=== PATIENT | male | born 1980 | race Caucasian/White ===

== ENCOUNTER 2016-09-11 05:56 | Inpatient (IN) | payer OTHER ==
[~2016-09-11] VITALS: Ht 175.3 cm; Wt 97.4 kg
[2016-09-11 06:27] VITALS: BP 151/86; PULSE 82; RESP 18; TEMP 98.2; O2SAT 98
[2016-09-11] MEDS ORDERED: VENL37.5 PO (06:34)
--- NOTE | 2016-09-11 07:10 | PD ---
HPI Chief Complaint: Psychiatric Symptoms Time Seen by Provider: 07:03 Travel History International Travel<30 days: No Contact w/Intl Traveler<30days: No Traveled to known affect area: No History of Present Illness HPI 35-year-old male with history of depression, anxiety, PTSD, here voluntarily for evaluation of suicidal ideation. The patient reports feeling suicidal stating that he had thoughts of hurting himself with chemicals. He reports rounds of finances and is depressed because he is not able to see his daughter. He was on Effexor 37.5 mg, however he ran out of this medication 3 days ago. He is having a slight posterior headache. He reports history of headaches and states that this is usual for him. No fevers, chills, cough, or recent illness. No alcohol or drug abuse or use. PFSH Past Medical History Depression: Yes Past Surgical History Surgical History: No Previous Surgery Social History Alcohol Use: No Tobacco Use: No Substance Use: No Allergies-Medications (Allergen,Severity, Reaction): Coded Allergies: No Known Allergies (Unverified , 09/11/16) Reported Meds & Prescriptions Reported Meds & Active Scripts Active Reported Effexor (Venlafaxine HCl) 37.5 Mg Tab 37.5 Mg PO DAILY Review of Systems Except as stated in HPI: all other systems reviewed are Neg Physical Exam Narrative GENERAL: Pleasant, well-developed, well-nourished, comfortable, no acute distress. SKIN: Warm and dry. HEAD: Atraumatic. Normocephalic. EYES: Pupils equal and round. No scleral icterus. No injection or drainage. ENT: Mucous membranes pink and moist. NECK: Trachea midline. No JVD. No nuchal rigidity. CARDIOVASCULAR: Regular rate and rhythm. RESPIRATORY: No accessory muscle use. Clear to auscultation. Breath sounds equal bilaterally. GASTROINTESTINAL: Abdomen soft, non-tender, nondistended. MUSCULOSKELETAL: No obvious deformities. No clubbing. No cyanosis. No edema. NEUROLOGICAL: Awake and alert. No obvious cranial nerve deficits. Motor grossly within normal limits. Normal speech. PSYCHIATRIC: Appropriate mood and affect; insight and judgment normal. Data Data Last Documented VS Vital Signs Date Time Temp Pulse Resp B/P Pulse Ox O2 Delivery O2 Flow Rate FiO2 09/11/16 06:27 98.2 82 18 151/86 98 Orders Complete Blood Count With Diff (09/11/16 07:07) Comprehensive Metabolic Panel (09/11/16 07:07) Psych Screen (09/11/16 07:07) Drug Screen, Random Urine (09/11/16 07:07) Alcohol (Ethanol) (09/11/16 07:07) Acetaminophen (Tylenol) (09/11/16 07:15) Labs Laboratory Tests Test 09/11/16 09/11/16 07:15 07:50 White Blood Count 8.8 TH/MM3 Red Blood Count 5.09 MIL/MM3 Hemoglobin 14.2 GM/DL Hematocrit 42.9 % Mean Corpuscular Volume 84.2 FL Mean Corpuscular Hemoglobin 27.9 PG Mean Corpuscular Hemoglobin 33.1 % Concent Red Cell Distribution Width 13.5 % Platelet Count 188 TH/MM3 Mean Platelet Volume 9.6 FL Neutrophils (%) (Auto) 50.0 % Lymphocytes (%) (Auto) 35.8 % Monocytes (%) (Auto) 10.1 % Eosinophils (%) (Auto) 3.2 % Basophils (%) (Auto) 0.9 % Neutrophils # (Auto) 4.4 TH/MM3 Lymphocytes # (Auto) 3.1 TH/MM3 Monocytes # (Auto) 0.9 TH/MM3 Eosinophils # (Auto) 0.3 TH/MM3 Basophils # (Auto) 0.1 TH/MM3 CBC Comment DIFF FINAL Differential Comment Sodium Level 142 MEQ/L Potassium Level 3.6 MEQ/L Chloride Level 109 MEQ/L Carbon Dioxide Level 25.6 MEQ/L Anion Gap 7 MEQ/L Blood Urea Nitrogen 13 MG/DL Creatinine 1.04 MG/DL Estimat Glomerular Filtration 82 ML/MIN Rate Random Glucose 104 MG/DL Calcium Level 8.6 MG/DL Total Bilirubin 0.3 MG/DL Aspartate Amino Transf 12 U/L (AST/SGOT) Alanine Aminotransferase 15 U/L (ALT/SGPT) Alkaline Phosphatase 83 U/L Total Protein 6.9 GM/DL Albumin 3.4 GM/DL Ethyl Alcohol Level LESS THAN 3 MG/DL Urine Opiates Screen NEG Urine Barbiturates Screen NEG Urine Amphetamines Screen NEG Urine Benzodiazepines Screen NEG Urine Cocaine Screen NEG Urine Cannabinoids Screen NEG MDM Medical Decision Making Medical Screen Exam Complete: Yes Emergency Medical Condition: Yes Differential Diagnosis Depression, suicidal ideation, tension headache, cluster headache, migraine headache, SAH/meningitis/encephalitis unlikely Narrative Course Labs reviewed and are unremarkable. The patient is medically cleared for psychiatric evaluation and disposition by them. Diagnosis Primary Impression: Suicidal ideation Jose Ba MD Sep 11, 2016 07:10
[2016-09-11] MEDS ORDERED: ACETAMINOPHEN 325 MG TAB PO ONE (07:15)
[2016-09-11 07:38] LABS: AUTOMATED NEUTROPHIL # 4.4 TH/MM3 (1.8-7.7); BASOPHIL # 0.1 TH/MM3 (0-0.2); BASOPHIL % 0.9 % (0.0-2.0); EOSINOPHIL # 0.3 TH/MM3 (0-0.4); EOSINOPHIL % 3.2 % (0.0-4.0); HEMATOCRIT 42.9 % (39.0-51.0); HEMO FLAGS DIFF FINAL; LYMPH % 35.8 % (9.0-44.0); LYMPHOCYTE # 3.1 TH/MM3 (1.0-4.8); MEAN CELL VOLUME 84.2 FL (80.0-100.0); MEAN CORPUSCULAR HEMOGLOBIN 27.9 PG (27.0-34.0); MEAN CORPUSCULAR HGB CONC 33.1 % (32.0-36.0); MONO % 10.1 % (0.0-8.0); PLATELET COUNT 188 TH/MM3 (150-450); RED BLOOD COUNT 5.09 MIL/MM3 (4.50-5.90); RED CELL DISTRIBUTION WIDTH 13.5 % (11.6-17.2); WHITE BLOOD COUNT 8.8 TH/MM3 (4.0-11.0)
[2016-09-11 07:54] LABS: ALT (GPT) 15 U/L (12-78); ANION GAP 7 MEQ/L (5-15); AST (GOT) 12 U/L (15-37); BICARBONATE 25.6 MEQ/L (21.0-32.0); BLOOD UREA NITROGEN 13 MG/DL (7-18); CHLORIDE 109 MEQ/L (98-107); GLOMERULAR FILTRATION RATE 82 ML/MIN (>89); POTASSIUM 3.6 MEQ/L (3.5-5.1); SODIUM (NA) 142 MEQ/L (136-145)
[2016-09-11 07:56] LABS: ALKALINE PHOSPHATASE 83 U/L (45-117); TOTAL BILIRUBIN ADULT 0.3 MG/DL (0.2-1.0)
[2016-09-11 08:15] LABS: AMPHETAMINE, URINE NEG (NEG); BARBITURATES, URINE NEG (NEG); COCAINE, URINE NEG (NEG)
[2016-09-11 13:00] VITALS: BP 128/83; PULSE 88; RESP 16; O2SAT 100
[2016-09-11 17:06] VITALS: BP 124/76
[2016-09-11 18:03] VITALS: BP 130/70; PULSE 66; RESP 16; TEMP 97.8; O2SAT 96
[2016-09-11] MEDS ORDERED: IBUPROFEN 600 MG TAB PO ONE (18:45)
[2016-09-11 22:23] VITALS: BP 123/67; PULSE 63; RESP 18; O2SAT 98
[2016-09-12 02:22] VITALS: BP 109/72; PULSE 54; RESP 14; O2SAT 99
[2016-09-12] MEDS ORDERED: ALUMINUM/MAGNESIUM/SIMETH 30 ML CUP PO PRN (04:45)
[2016-09-12] MEDS ORDERED: hydrOXYzine HCL 50 MG TAB PO PRN (04:45)
[2016-09-12] MEDS ORDERED: ACETAMINOPHEN 325 MG TAB PO PRN (04:45)
[2016-09-12] MEDS ORDERED: MAGNESIUM HYDROXIDE SUSP 30 ML CUP PO PRN (04:45)
[2016-09-12] MEDS ORDERED: diphenhydrAMINE HCL 50 MG CAP PO PRN ×2 (04:45)
[2016-09-12] MEDS ORDERED: diphenhydrAMINE HCL 50 MG/ML VIAL IM PRN (04:45)
[2016-09-12 05:25] VITALS: BP 137/87; PULSE 67; RESP 18; TEMP 98; O2SAT 98
[2016-09-12] MEDS: REMOVE OLD PATCH T-DERMAL SCH (09:00)
[2016-09-12] MEDS: NICOTINE 21 MG/24 HR PATCH T-DERMAL SCH (09:00)
--- NOTE | 2016-09-12 15:16 | HHI.HP ---
Provisional Diagnosis Admission Date Sep 12, 2016 at 04:40 [place] I. 1. Major depressive disorder, recurrent severe without psychotic features 2. PTSD, chronic [place] II. Deferred [place] V. GAF is 30 presently Certification of Person's Competence To Provide Express and Informed Consent I have personally examined Alonzo Mahajan , a person being served at [facility] on, Sep 12, 2016 15:16. Express and informed consent means consent voluntarily given in writing, by a competent person, after sufficient explanation and disclosure of the subject matter involved to enable the person to make a knowing and willful decision without any element of force, fraud, deceit, duress, or other form of constraint or coercion. This person is 18 years of age or older, is not now known to be incompetent to consent to treatment with a guardian advocate, and does not have a health care surrogate or proxy currently making medical treatment decisions. I have found this person to be one of the following: [x] Competent to provide express and informed consent, as defined above, for voluntary admission to this facility and is competent to provide express and informed consent for treatment. He/she has the consistent capacity to make well reasoned, willful, and knowing decisions concerning his or her medical or mental health treatment. The person fully and consistently understands the purpose of the admission for examination/placement and is fully capable of personally exercising all rights assured [place] [] Incompetent to provide express and informed consent to voluntary admission, and this is incompetent to provide express and informed consent to treatment. The person must be transferred to involuntary status and a petition for a guardian advocate filed with the Circuit Court. [] Refusing to provide express and informed consent to voluntary admission but is competent to provide express and informed consent for treatment. The person must be discharged or transferred to involuntary status. Form shall be completed within 24 hours of a person's arrival at the receiving facility and filed in the clinical record of each person: 1. Admitted on a voluntary basis 2. Permitted to provide express and informed consent to his/her own treatment 3. Allowed to transfer from involuntary to voluntary status 4. Prior to permitting a person to consent to his or her own treatment after having been previously found incompetent to consent to treatment. History of Present Illness Capacity: Has Capacity HPI Mr. Mahajan is a 35-year-old male with a reported history of PTSD from childhood trauma and major depressive disorder who presented voluntarily to the emergency department with complaints of suicidal ideation. Reviewing the electronic medical record, it appears this is patient's first visit to [place]. Patient seen and examined. Chart reviewed. Case discussed with nursing staff. On my examination today, the patient says that he moved down to [place] in April and since then has run out of his Effexor, which had previously managed his depression well. He reports that he went to see a general practitioner through the [facility] who resumed the Effexor about 2 weeks ago, but his mood has continued to worsen. He says that he had formulated a plan to go out and get the chemicals necessary to generate hydrogen cyanide gas with which to kill himself but serendipitously, the police arrived at his doorstep responding to a 911 call from someone saying they were going to hang himself. The patient says that he dismissed the police at that time but called them back when he realized that he needed some help. He says that he had already completed a suicide note and was preparing to make a suicide attempt. He admits to low mood , anhedonia, low energy and poor concentration. No hypomanic or manic symptoms in the patient denies a history of same. Denies audiovisual hallucinations. No delusional beliefs. Patient reports that his PTSD symptoms are fairly well controlled at present. The remainder of the psychiatric ROS is negative. Past psychiatric history: Includes a history of psychiatric diagnoses as noted above. He reports that he typically does well on Effexor 150-225 mg daily. This has been augmented in the past with Abilify but he has done fine with the Effexor monotherapy. He is not currently under the care of a psychiatrist. He was admitted in January of last year for a depressive episode. He has attempted suicide by hanging, and this is his primary method, and also by overdose. His most recent suicide attempt was in 2012. Family history: Patient denies any family history of mental illness. Chemical dependency history: Patient denies any abuse of drugs or alcohol. Social history: Patient has been in [place] since April. He is currently living with his mother. He is and has a daughter who lives with her mother. He is a former [employer] but currently works as the general scrap worker of [employer]. He previously served in the [employer] but never saw combat. He denies any legal history. Denies any access to guns or firearms. He is a jehovah's witness Quaker. Review of Systems Except as stated in HPI: all other systems reviewed are Neg Past Psych History Psychological trauma history Reports a history of childhood trauma Violence risk - others (6 mos) Lower imminent risk. Denies homicidal ideation. No known history of violence. Violence risk - self (6 mos) Elevated. Substance Abuse History Drugs/Alcohol past 12 months See above Past Family Social History Coded Allergies: No Known Allergies (Unverified , 09/11/16) Past Medical History Includes a history of tension headaches well managed with ibuprofen as needed Reported Medications Venlafaxine (Effexor)37.5 Mg Tab37.5 Mg PO DAILY #60 TAB Ref 0 09/11/16 Current Medications Medications (Trade) Dose Ordered Sig/Mandy Route Start Time Stop Time Status Last Admin (Benadryl) 50 mg Q6H PRN PO 09/12/16 04:45 (Benadryl Inj) 50 mg Q6H PRN IM 09/12/16 04:45 (Benadryl) 50 mg HS PRN PO 09/12/16 04:45 (Tylenol) 650 mg Q4H PRN PO 09/12/16 04:45 (Milk Of Magnesia Liq) 30 ml DAILY PRN PO 09/12/16 04:45 (Mag-Al Plus Susp Liq) 30 ml Q6H PRN PO 09/12/16 04:45 (Habitrol 21 Mg Patch.24 Hr) 1 patch DAILY T-DERMAL 09/12/16 09:00 (Atarax) 50 mg Q6H PRN PO 09/12/16 04:45 Miscellaneous Information 1 DAILY T-DERMAL 09/12/16 09:00 Family History See above Social History See above Patient's Strengths (min. 2) In a monitored setting. Verbally fluent. Physical Exam Physical examination completed by ED provider. On my examination today, the patient is well-nourished and well-developed and in no acute physical distress. No motoric abnormalities noted. Labs and vital signs reviewed: Vital Signs Vital Signs Date Time Temp Pulse Resp B/P Pulse Ox O2 Delivery O2 Flow Rate FiO2 09/12/16 05:25 98.0 67 18 137/87 98 4/2/17 02:22 Room Air I/O 09/11/16 09/11/16 09/12/16 08:00 16:00 00:00 Intake Total 480 ml Output Total 300 ml Balance 180 ml Lab Results Item Value Date Time White Blood Count 8.8 TH/MM3 09/11/16714 Hemoglobin 14.2 GM/DL 09/11/16714 Platelet Count 188 TH/MM3 09/11/16714 Sodium Level 142 MEQ/L 09/11/16714 Potassium Level 3.6 MEQ/L 09/11/16714 Chloride Level 109 MEQ/L H 09/11/16714 Carbon Dioxide Level 25.6 MEQ/L 09/11/16714 Blood Urea Nitrogen 13 MG/DL 09/11/16714 Creatinine 1.04 MG/DL 09/11/16714 Aspartate Amino Transf (AST/SGOT) 12 U/L L 09/11/16714 Alanine Aminotransferase (ALT/SGPT) 15 U/L 09/11/16714 Alkaline Phosphatase 83 U/L 09/11/16714 Toxicology was negative and alcohol level was undetectable. Mental Status Examination Patient is in [facility]. He is well groomed. He is awake and alert and oriented 3. No evidence of delirium. No motoric abnormalities noted. Speech is within normal limits for rate, tone and volume. Lying which and fund of knowledge seemed above average. Mood is depressed and affect remains fairly full and reactive. Thought process is linear. No loosening of associations. No evident delusions. Denies audiovisual hallucinations. Endorses ongoing suicidal ideation without specific plan or intent at this time. Denies any urge to hurt himself on the inpatient psychiatric unit. Denies homicidal ideation. Insight and judgment are fair. Assessment & Plan Problem List: (1) Major depressive disorder ICD Code: F32.9 (2) Chronic posttraumatic stress disorder ICD Code: F43.12 Assessment & Plan This is a 35-year-old male with psychiatric history as detailed above who presents voluntarily for psychiatric evaluation. The patient endorses several months of worsening mood in the setting of inadvertent nonadherence with his Effexor. He has recently resumed his Effexor but unfortunately his mood has continued to worsen and he was contemplating suicide by lethal gas. Patient requires psychiatric hospitalization at this time for safety, observation and stabilization. Admit inpatient. Voluntary status. Resume Effexor 75 mg daily with plans to titrate to the 150-225 mg dose range that the patient previously found efficacious. Vistaril as needed for anxiety. Melatonin as needed for sleep. Vitals every shift. Counselor to see. Disposition planning. Estimated length of stay: 7-9 days. Discharge Planning Pending psychiatric stabilization Request HC Surrog/Guard Advoc?: No Problem Qualifiers (1) Major depressive disorder: Qualified Code: F33.2 - Severe episode of recurrent major depressive disorder, without psychotic features Jean Marie Menezes MD Sep 12, 2016 15:16
[2016-09-12] MEDS: VENLAFAXINE HCL XR 75 MG CAP PO SCH (17:24)
[2016-09-12 18:10] VITALS: BP 131/95; PULSE 67; TEMP 98.1; O2SAT 98
[2016-09-12] MEDS: MELATONIN 5 MG TAB PO PRN (23:09)
[2016-09-13 06:21] VITALS: BP 109/65; PULSE 66; RESP 18; TEMP 97.2; O2SAT 93
[2016-09-13 07:47] LABS: HDL CHOLESTEROL 45.5 MG/DL (40.0-60.0); LDL CHOLESTEROL 105 MG/DL (0-99)
[2016-09-13] MEDS: NICOTINE 21 MG/24 HR PATCH T-DERMAL SCH (08:48)
[2016-09-13] MEDS: VENLAFAXINE HCL XR 75 MG CAP PO SCH (08:48)
[2016-09-13] MEDS: REMOVE OLD PATCH T-DERMAL SCH (09:00)
[2016-09-13 09:14] LABS: HEMOGLOBIN A1a 0.9 %; HEMOGLOBIN A1b 0.9 %; HEMOGLOBIN F 0.8 %; HEMOGLOBIN LA1C 1.8 %; HEMOGLOBIN P3 3.5 %
[2016-09-13] MEDS: IBUPROFEN 600 MG TAB PO PRN ×4 (12:34→17:03)
--- NOTE | 2016-09-13 14:33 | HHI.PYPN ---
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 But is having a difficult time looking up with the [facility] clinic here in town. He did run out of his Effexor that seems to be involved with the increased depression and suicidality. There is also stress of them [place] 4[place] He is vague about suicidality at the present time. He denies auditory or visual hallucinations. Compliant medications. For now continue treatment Review of Systems Except as stated in HPI: all other systems reviewed are Neg Objective Alert: Yes [place]: Person, Place, Date, Situation Mood: Calm, Depressed Affect: Restricted Memory Intact: Comment (they are) Hallucinations: Other (denies) Delusions: No Delusion Type: Other (denies) Suicidal: Ideation (continue with suicidal ideation though softer) Homicidal: Ideation (denies) Insight/Judgement Poor Labs Test 09/13/16 06:48 Hemoglobin A1c 5.6 % Triglycerides Level 119 MG/DL Cholesterol Level 174 MG/DL LDL Cholesterol 105 MG/DL HDL Cholesterol 45.5 MG/DL Cholesterol/HDL Ratio 3.82 RATIO Vitals/IOs Vital Signs Date Time Temp Pulse Resp B/P Pulse Ox O2 Delivery O2 Flow Rate FiO2 09/13/16 06:21 97.2 66 18 109/65 93 09/12/16 02:22 Room Air Assessment & Plan Problem List: (1) Major depressive disorder ICD Code: F32.9 (2) Chronic posttraumatic stress disorder ICD Code: F43.12 Assessment & Plan Estimated LOS: days patient continues depressed with vague suicidal ideation, compliant medications. For now continue treatment Justification for Cont. Inpt. At this time patient will decompensate and placed in a lower level of care Discharge Planning To be determined Request HC Surrog/Guard Advoc?: No Problem Qualifiers (1) Major depressive disorder: Qualified Code: F33.2 - Severe episode of recurrent major depressive disorder, without psychotic features Gaurang Trinh MD Sep 13, 2016 14:33
[2016-09-13 16:00] VITALS: BP 109/65; PULSE 66; RESP 18; TEMP 97.2; O2SAT 93
[2016-09-13] MEDS: MELATONIN 5 MG TAB PO PRN (23:07)
[2016-09-14 05:47] VITALS: BP 119/69; PULSE 67; RESP 18; TEMP 97.9; O2SAT 96
[2016-09-14] MEDS: VENLAFAXINE HCL XR 75 MG CAP PO SCH (08:31)
[2016-09-14] MEDS: NICOTINE 21 MG/24 HR PATCH T-DERMAL SCH (08:32)
[2016-09-14] MEDS: REMOVE OLD PATCH T-DERMAL SCH (08:33)
--- NOTE | 2016-09-14 12:53 | HHI.PYPN ---
Subjective Remarks Patient seen in the day room with nurse Lou, and counselor Audrey, chart reviewed. Patient calm cooperative with good eye contact and improved affect. He now states suicidality is present but resolving. Denies voices. Compliant medications. For now continue treatment Review of Systems Except as stated in HPI: all other systems reviewed are Neg Objective Alert: Yes [place]: Person, Place, Date, Situation Mood: Calm, Depressed Affect: Restricted (slight increase in affect) Memory Intact: Comment (they are) Hallucinations: Other (denies) Delusions: No Delusion Type: Other (denies) Suicidal: Ideation (continue with suicidal ideation though softer) Homicidal: Ideation (denies) Insight/Judgement Poor Vitals/IOs Vital Signs Date Time Temp Pulse Resp B/P Pulse Ox O2 Delivery O2 Flow Rate FiO2 09/14/16 05:47 97.9 67 18 119/69 96 09/12/16 02:22 Room Air Assessment & Plan Problem List: (1) Major depressive disorder ICD Code: F32.9 (2) Chronic posttraumatic stress disorder ICD Code: F43.12 Assessment & Plan Estimated LOS: days patient continues somewhat depressed with vague suicidal ideation though that is now resolving. Compliant medications. For now continue treatment Justification for Cont. Inpt. At this time patient will decompensate if placed in the lower level of care Discharge Planning To be determined Request HC Surrog/Guard Advoc?: No Problem Qualifiers (1) Major depressive disorder: Qualified Code: F33.2 - Severe episode of recurrent major depressive disorder, without psychotic features Gaurang Trinh MD Sep 14, 2016 12:53
[2016-09-14 17:03] VITALS: BP 122/77; PULSE 71; RESP 18; TEMP 98.6; O2SAT 98
[2016-09-14] MEDS: MELATONIN 5 MG TAB PO PRN (23:20)
[2016-09-15 06:14] VITALS: BP 114/57; PULSE 70; RESP 18; TEMP 98.2; O2SAT 97
[2016-09-15] MEDS: VENLAFAXINE HCL XR 75 MG CAP PO SCH (08:49)
[2016-09-15] MEDS: NICOTINE 21 MG/24 HR PATCH T-DERMAL SCH (08:49)
[2016-09-15] MEDS: REMOVE OLD PATCH T-DERMAL SCH (08:49)
--- NOTE | 2016-09-15 13:17 | HHI.PYPN ---
Subjective Remarks Patient discussed with treatment team, patient seen today in day room with nurse Tiara, patient now denies suicidality homicidality voices or visions. Feels increase in Effexor to 75 mg is okay but he would like it increased to 150 mg which was a maintenance dose for him prior with better results. Will increase Effexor to 150 mg daily. Consider discharge in the next 24-48 hours Review of Systems ROS Limitations: Unresponsive Objective Alert: Yes [place]: Person, Place, Date, Situation Mood: Calm, Depressed Affect: Restricted (slight increase in affect) Memory Intact: Comment (they are) Hallucinations: Other (denies) Delusions: No Delusion Type: Other (denies) Suicidal: Ideation (continue with suicidal ideation though softer) Homicidal: Ideation (denies) Insight/Judgement Poor Vitals/IOs Vital Signs Date Time Temp Pulse Resp B/P Pulse Ox O2 Delivery O2 Flow Rate FiO2 09/15/16 06:14 98.2 70 18 114/57 97 09/12/16 02:22 Room Air Assessment & Plan Problem List: (1) Major depressive disorder ICD Code: F32.9 (2) Chronic posttraumatic stress disorder ICD Code: F43.12 Assessment & Plan Estimated LOS: days patient's depression appears to be slowly lifting, is suicidality is also lifting. See medication changes above Justification for Cont. Inpt. At this time patient will decompensate if placed in a lower level of care Discharge Planning To be determined Request HC Surrog/Guard Advoc?: No Problem Qualifiers (1) Major depressive disorder: Qualified Code: F33.2 - Severe episode of recurrent major depressive disorder, without psychotic features Gaurang Trinh MD Sep 15, 2016 13:17
[2016-09-15 18:23] VITALS: BP 126/76; PULSE 82; RESP 17; TEMP 98.3; O2SAT 94
[2016-09-15] MEDS: MELATONIN 5 MG TAB PO PRN (23:10)
[2016-09-16 06:45] VITALS: BP 107/58; PULSE 73; RESP 16; TEMP 98; O2SAT 97
[2016-09-16] MEDS: REMOVE OLD PATCH T-DERMAL SCH (09:00)
[2016-09-16] MEDS: NICOTINE 21 MG/24 HR PATCH T-DERMAL SCH (09:00)
[2016-09-16] MEDS: VENLAFAXINE HCL XR 75 MG CAP PO SCH (09:22)
--- NOTE | 2016-09-16 14:54 | HHI.PYPN ---
Subjective Remarks Patient seen in [place] with nurse Sandra. Patient compliant medication. Now denies suicidality homicidality voices or visions. States she has had good conversations with his family. We'll consider discharge tomorrow with follow- up through the [facility] in [facility] Review of Systems Except as stated in HPI: all other systems reviewed are Neg Objective Alert: Yes [place]: Person, Place, Date, Situation Mood: Calm, Depressed Affect: Restricted (slight increase in affect) Memory Intact: Comment (they are) Hallucinations: Other (denies) Delusions: No Delusion Type: Other (denies) Suicidal: Ideation (denies today) Homicidal: Ideation (denies) Insight/Judgement Poor Vitals/IOs Vital Signs Date Time Temp Pulse Resp B/P Pulse Ox O2 Delivery O2 Flow Rate FiO2 09/16/16 06:45 98.0 73 16 107/58 97 Intake and Output 09/15/16 09/15/16 09/16/16 08:00 16:00 00:00 Intake Total 360 ml Balance 360 ml Assessment & Plan Problem List: (1) Major depressive disorder ICD Code: F32.9 (2) Chronic posttraumatic stress disorder ICD Code: F43.12 Assessment & Plan Estimated LOS: days patient's mood continues to improve, now denying suicidality of voices. Compliant medications. Consider discharge tomorrow with follow-up through [facility] Justification for Cont. Inpt. Consider discharge tomorrow patient is improving Discharge Planning To be determined consider discharge tomorrow with follow-up [facility] Request HC Surrog/Guard Advoc?: No Problem Qualifiers (1) Major depressive disorder: Qualified Code: F33.2 - Severe episode of recurrent major depressive disorder, without psychotic features Gaurang Trinh MD Sep 16, 2016 14:54
[2016-09-16 19:33] VITALS: BP 121/76; PULSE 68; RESP 19; TEMP 98.4; O2SAT 100
[2016-09-16] MEDS: MELATONIN 5 MG TAB PO PRN (22:26)
[2016-09-17 05:43] VITALS: BP 116/73; PULSE 65; RESP 16; TEMP 99.4; O2SAT 98
[2016-09-17] MEDS: NICOTINE 21 MG/24 HR PATCH T-DERMAL SCH (09:00)
[2016-09-17] MEDS: VENLAFAXINE HCL XR 75 MG CAP PO SCH (09:00)
[2016-09-17] MEDS: REMOVE OLD PATCH T-DERMAL SCH (09:00)
[2016-09-17] MEDS ORDERED: VENL75XR PO (14:27)
--- NOTE | 2016-09-17 14:33 | HHI.DS ---
Psychiatry Discharge Summary Inpatient Psychiatric care?: Yes Advance Directive: No Reason Not Provided: Refused Mental Health AdvanceDirective: No (Refused) Health Care Proxy: No Admission Admission Date Sep 12, 2016 at 04:40 Admission Diagnosis: (1) Major depressive disorder ICD Code: F32.9 (2) Chronic posttraumatic stress disorder ICD Code: F43.12 Brief History Mr. Mahajan is a 35-year-old male with a reported history of PTSD from childhood trauma and major depressive disorder who presented voluntarily to the emergency department with complaints of suicidal ideation. Reviewing the electronic medical record, it appears this is patient's first visit to [facility]. Patient seen and examined. Chart reviewed. Case discussed with nursing staff. On my examination today, the patient says that he moved down to [place] in April and since then has run out of his Effexor, which had previously managed his depression well. He reports that he went to see a general practitioner through the [place] who resumed the Effexor about 2 weeks ago, but his mood has continued to worsen. He says that he had formulated a plan to go out and get the chemicals necessary to generate hydrogen cyanide gas with which to kill himself but serendipitously, the police arrived at his doorstep responding to a 911 call from someone saying they were going to hang himself. The patient says that he dismissed the police at that time but called them back when he realized that he needed some help. He says that he had already completed a suicide note and was preparing to make a suicide attempt. He admits to low mood , anhedonia, low energy and poor concentration. No hypomanic or manic symptoms in the patient denies a history of same. Denies audiovisual hallucinations. No delusional beliefs. Patient reports that his PTSD symptoms are fairly well controlled at present. The remainder of the psychiatric ROS is negative. Past psychiatric history: Includes a history of psychiatric diagnoses as noted above. He reports that he typically does well on Effexor 150-225 mg daily. This has been augmented in the past with Abilify but he has done fine with the Effexor monotherapy. He is not currently under the care of a psychiatrist. He was admitted in January of last year for a depressive episode. He has attempted suicide by hanging, and this is his primary method, and also by overdose. His most recent suicide attempt was in 2012. Family history: Patient denies any family history of mental illness. Chemical dependency history: Patient denies any abuse of drugs or alcohol. Social history: Patient has been in [place] since April. He is currently living with his mother. He is and has a daughter who lives with her mother. He is a former [employer] but currently works as the general claims agent of [employer]. He previously served in the [email or web address] but never saw combat. He denies any legal history. Denies any access to guns or firearms. He is a quaker Denominational. Tobacco Use In Past 30 Days: No Tobacco Past 30 Days Alcohol Use: Monthly or Less Hospital Course Patient's hospital course was uneventful, the suicidality and depressive mood slowly resolved with participation in the milieu, and compliance with his medication. Patient now denies suicidality homicidality voices or visions. He does wish discharge today. At this time I feel patient is R[place] the maximum benefit of this hospitalization. He does have some to return to with his mother. He does have mental health follow-up through the [place] [facility] thus patient was discharged today to himself, Rx 1 month, follow-up [place] [facility] outpatient. Also may return to work on Wednesday 09/20 Results Blood Pressure 116 / 73 Vital Signs Date Time Temp Pulse Resp B/P Pulse Ox O2 Delivery O2 Flow Rate FiO2 09/17/16 05:43 99.4 65 16 116/73 98 Laboratory Results Test 09/13/16 06:48 Hemoglobin A1c 5.6 % (4.3-6.0) Triglycerides Level 119 MG/DL (42-150) Cholesterol Level 174 MG/DL (120-200) LDL Cholesterol 105 MG/DL (0-99) HDL Cholesterol 45.5 MG/DL (40.0-60.0) Summary of Procedures None done Pending results at discharge: No Medications # of Antipsychotic meds at D/C: 0 Approp Antipsych med options 1 - Minimum of three failed multiple trials of monotherapy. 2 - Documented plan to taper to monotherapy due to previous use of multiple meds OR cross-taper in progress at D/C. 3 - Documentation of augmentation of Clozapine. 4 - Justification other than those listed in allowable values 1-3, document here : Discharge Discharge Date: Sep 17, 2016 Discharge Diagnosis: (1) Major depressive disorder Diagnosis: Principal ICD Code: F32.9 (2) Chronic posttraumatic stress disorder Diagnosis: Secondary ICD Code: F43.12 Mental Status Exam at Disch Alert oriented white male, normal active, mood is euthymic to mildly dysphoric affect good range intensity. Speech rate and rhythm within normal limits though no formal thought disorders. No auditory or visual hallucinations no delusions. Insight and judgment is fair. Cognition grossly intact Pt Condition on Discharge: Stable Discharge Disposition: Discharge Home Discharge Instructions Diet Instructions: As Tolerated, No Restrictions Activities you can perform: Regular-No Restrictions Scheduled Appointment: outpatient [place] Discharge Time <= 30 minutes Discharge/Advance Care Plan Health Problems: (1) Major depressive disorder (2) Chronic posttraumatic stress disorder Goals to promote your health * To prevent worsening of your condition and complications * To maintain your health at the optimal level Directions to meet your goals Take your medications as prescribed Follow your dietary instruction Follow activity as directed Keep your appointments as scheduled Take your immunizations and boosters as scheduled If your symptoms worsen call your PCP, if no PCP go to Urgent Care Center or Emergency Room For 03/01 questions related to your inpatient stay or results of tests pending at discharge, please contact Dr. Gaurang Trinh at Smoking is Dangerous to Your Health. Avoid second hand smoking Problem Qualifiers (1) Major depressive disorder: Qualified Code: F33.2 - Severe episode of recurrent major depressive disorder, without psychotic features Gaurang Trinh MD Sep 17, 2016 14:32
== END 2016-09-17 16:15 | disposition home or self-care (01) | DRG 885 ==
LOC: NED 05:56 → NEDA 09-12 04:40 → H260 09-12 05:20
PROVIDERS: ADMIT Psychiatry & Neurology Psychiatry; ATTEND Psychiatry & Neurology Psychiatry
DX: F33.3 Major depressive disorder, recurrent, severe with psychotic symptoms (principal); R45.851 Suicidal ideations; F43.12 Post-traumatic stress disorder, chronic
CPT/HCPCS: 80053; 80061; 80307; 83036; 85025; 99284